=== PATIENT | male | born 1940 | race Caucasian/White ===

== ENCOUNTER 2020-10-12 15:55 | Inpatient (IN) | payer MEDICARE ==
[~2020-10-12] VITALS: Ht 167.6 cm; Wt 110.9 kg
[2020-10-12 17:23] LABS: BASOPHILS % (AUTO) 1 % (0-1); EOSINOPHILS % (AUTO) 2 % (1-7); LYMPHOCYTES % (AUTO) 12 % (22-44); MEAN CORPUSCULAR HGB CONC 33.2 g/dL (33.2-36.2); MONOCYTES % (AUTO) 5 % (2-9); NEUTROPHILS % (AUTO) 80 % (42-75); PLATELET COUNT 205 x10^3/uL (130-400); RED BLOOD COUNT 4.37 x10^6/uL (4.38-5.82)
[2020-10-12 17:29] LABS: ALBUMIN 3.3 g/dL (3.4-5.0); CALCIUM 9.7 mg/dL (8.5-10.1); CHLORIDE 105 mmol/L (98-107)
[2020-10-12 17:30] LABS: CREATININE 3.04 mg/dL (0.7-1.3)
[2020-10-12 17:42] LABS: ANION GAP 4 mmol/L (5-15)
[2020-10-12] MEDS ORDERED: SODIUM CHLORIDE FLUSH 10ML SYR IVF PRN (18:30)
--- NOTE | 2020-10-12 18:40 | NUR ---
BEDSIDE REPORT TO NELLIE HUSSEIN.
--- NOTE | 2020-10-12 18:59 | NUR ---
ATTEMPTED TO GIVE REPORT TO [facility]ALL[facility]. LARRY BALLARD SAID THAT THEY WERE IN THE MIDDLE OF SHIFT CHANGE AND TO CALL BACK IN 10 MIN
--- NOTE | 2020-10-12 18:59 | NUR ---
ASSUMED CARE FROM BETTY BALLARD
--- NOTE | 2020-10-12 18:59 | NUR ---
PATIENT PROVIDED WITH URINAL REQUESTED.
[2020-10-12] MEDS ORDERED: OXYcodone IR 5MG TABLET PO PRN (19:00)
[2020-10-12] MEDS ORDERED: ACETAMINOPHEN 325 MG TABLET PO PRN (19:00)
[2020-10-12] MEDS: morphine SULFATE 10 MG/ML, 1ML IVPush PRN (19:54)
[2020-10-12] MEDS: LACTATED RINGERS 1,000 ML IV SCH (19:59)
[2020-10-12 20:30] VITALS: BP 114/73
[2020-10-13 01:47] VITALS: BP 110/67
[2020-10-13] MEDS: morphine SULFATE 10 MG/ML, 1ML IVPush PRN ×3 (02:08→02:45)
[2020-10-13] MEDS: LACTATED RINGERS 1,000 ML IV SCH ×2 (06:15→19:57)
[2020-10-13 06:49] LABS: BASOPHILS % (AUTO) 1 % (0-1); EOSINOPHILS % (AUTO) 1 % (1-7); LYMPHOCYTES % (AUTO) 20 % (22-44); MEAN CORPUSCULAR HEMOGLOBIN 29.9 pg (27.5-34.5); MEAN CORPUSCULAR HGB CONC 32.8 g/dL (33.2-36.2); MEAN PLATELET VOLUME 9.2 fL (7.4-10.4); MONOCYTES % (AUTO) 7 % (2-9); NEUTROPHILS % (AUTO) 71 % (42-75); PLATELET COUNT 194 x10^3/uL (130-400); RED BLOOD COUNT 3.98 x10^6/uL (4.38-5.82)
[2020-10-13 06:59] LABS: ANION GAP 5 mmol/L (5-15); CALCIUM 9.3 mg/dL (8.5-10.1); CHLORIDE 108 mmol/L (98-107); CREATININE 2.92 mg/dL (0.7-1.3)
[2020-10-13 07:11] VITALS: BP 143/83
[2020-10-13] MEDS: SENNA/DOCUSATE TABLET PO SCH (09:00)
[2020-10-13 09:04] LABS: INTERNATIONAL NORMALIZED RATIO 1.05 (0.93-1.1); PROTHROMBIN TIME 11.2 Seconds (9.6-11.5)
[2020-10-13] MEDS ORDERED: LEVO50CA4 PO (10:06)
[2020-10-13] MEDS ORDERED: CHOL10003 PO (10:06)
[2020-10-13] MEDS ORDERED: GABA300S PO (10:06)
[2020-10-13] MEDS ORDERED: ATOR20TA86 PO (10:06)
[2020-10-13] MEDS ORDERED: FAMO-79 PO (10:06)
[2020-10-13] MEDS ORDERED: AMLO-210 PO (10:06)
[2020-10-13] MEDS ORDERED: ALLO100T30 PO (10:06)
[2020-10-13] MEDS ORDERED: LISI10TA19 PO (10:06)
[2020-10-13] MEDS ORDERED: ASPI-963 PO (10:06)
[2020-10-13] MEDS ORDERED: [UNRECOGNIZED DRUG - CODE] PO (10:06)
[2020-10-13 12:27] VITALS: BP 136/82
[2020-10-13] MEDS ORDERED: CHLORHEXIDINE 15 ML UDC ONE (13:09)
[2020-10-13] MEDS ORDERED: CHLORHEXIDINE 15 ML UDC PO ONE (13:30)
[2020-10-13] MEDS ORDERED: FENTANYL PF 250 MCG/5ML ONE (13:31)
[2020-10-13] MEDS ORDERED: PHENYLEPHRINE 10 MG/ML ONE (13:45)
[2020-10-13] MEDS ORDERED: FENTANYL PF 100 MCG/2ML IV PRN (14:30)
[2020-10-13] MEDS ORDERED: MEPERIDINE/PF 25MG/0.5ML IVPush PRN (14:30)
[2020-10-13] MEDS ORDERED: MIDAZOLAM 1 MG/ML, 2ML IV PRN (14:30)
[2020-10-13] MEDS ORDERED: LABETALOL 5MG/ML, 20ML IV PRN (14:30)
[2020-10-13] MEDS ORDERED: ACETAMINOPHEN 325 MG TABLET PO PRN (14:30)
[2020-10-13] MEDS ORDERED: OXYcodone 5 MG/5 ML ORAL.SOL UDC PO PRN (14:30)
[2020-10-13] MEDS ORDERED: ALBUTEROL SULFATE 2.5 MG/3 ML NPPB PRN (14:30)
[2020-10-13] MEDS ORDERED: PROMETHAZINE 25 MG/ML, 1ML IVPush PRN (14:30)
[2020-10-13] MEDS ORDERED: HYDROmorphone 1 MG/ML, 1ML INJ IVPush PRN (14:30)
[2020-10-13] MEDS ORDERED: SUCCINYLCHOLINE 20 MG/ML, 10ML ONE (15:24)
[2020-10-13] MEDS ORDERED: GLYCOPYRROLATE 0.2MG/1ML, 5ML ONE (15:24)
[2020-10-13] MEDS ORDERED: DEXAMETHASONE 4 MG/ML, 1ML ONE (15:24)
[2020-10-13] MEDS ORDERED: PROPOFOL 10 MG/ML, 20ML ONE (15:24)
[2020-10-13] MEDS ORDERED: CEFAZOLIN 1,000 MG ONE (15:24)
[2020-10-13] MEDS ORDERED: NEOSTIGMINE 1 MG/ML, 10ML ONE (15:24)
[2020-10-13] MEDS ORDERED: ROCURONIUM 10MG/ML,5ML ONE (15:24)
[2020-10-13] MEDS ORDERED: LIDOCAINE-MPF 2% ,5ML ONE (15:24)
[2020-10-13] MEDS ORDERED: ONDANSETRON 2MG/ML, 2ML ONE (15:24)
[2020-10-13] MEDS ORDERED: ACETAMINOPHEN 650 MG/20.3 ML UDC ONE (16:08)
[2020-10-13 19:51] VITALS: BP 110/76
[2020-10-13] MEDS: CEFAZOLIN 2,000 MG in SODIUM CHLORIDE 0.9% 50 ML IV SCH (23:04)
[2020-10-14 00:04] VITALS: BP 130/78
[2020-10-14 04:12] VITALS: BP 128/74
[2020-10-14 05:00] LABS: BASOPHILS % (AUTO) 0 % (0-1); EOSINOPHILS % (AUTO) 0 % (1-7); LYMPHOCYTES % (AUTO) 13 % (22-44); MEAN CORPUSCULAR HEMOGLOBIN 29.8 pg (27.5-34.5); MEAN CORPUSCULAR HGB CONC 32.6 g/dL (33.2-36.2); MONOCYTES % (AUTO) 7 % (2-9); NEUTROPHILS % (AUTO) 80 % (42-75); PLATELET COUNT 183 x10^3/uL (130-400); RED BLOOD COUNT 3.56 x10^6/uL (4.38-5.82); RED CELL DISTRIBUTION WIDTH 14.9 % (9.4-14.8)
[2020-10-14] MEDS: LACTATED RINGERS 1,000 ML IV SCH ×2 (05:12→14:31)
[2020-10-14 05:13] LABS: ALBUMIN 2.8 g/dL (3.4-5.0); ANION GAP 6 mmol/L (5-15); CALCIUM 9.2 mg/dL (8.5-10.1); CHLORIDE 107 mmol/L (98-107)
[2020-10-14 05:16] LABS: CREATININE 2.89 mg/dL (0.7-1.3)
[2020-10-14] MEDS: morphine SULFATE 10 MG/ML, 1ML IVPush PRN ×2 (06:36→09:31)
[2020-10-14] MEDS: CEFAZOLIN 2,000 MG in SODIUM CHLORIDE 0.9% 50 ML IV SCH (06:37)
[2020-10-14 07:32] VITALS: BP 133/79
[2020-10-14] MEDS: AMLODIPINE 5 MG TABLET PO SCH (08:09)
[2020-10-14] MEDS: LISINOPRIL 10 MG TABLET PO SCH (08:09)
[2020-10-14] MEDS: CHOLECALCIFEROL 1,000 UNIT TABLET PO SCH (08:09)
[2020-10-14] MEDS: ATORVASTATIN 40 MG TABLET PO SCH (08:09)
[2020-10-14] MEDS: GABAPENTIN 300 MG CAPSULE PO SCH (08:09)
[2020-10-14] MEDS: SENNA/DOCUSATE TABLET PO SCH (08:09)
[2020-10-14] MEDS: LEVOTHYROXINE 50 MCG TABLET PO SCH (08:09)
[2020-10-14 12:26] VITALS: BP 101/68
[2020-10-14] MEDS: HEPARIN 5,000 UNITS/ML, 1ML SQ SCH ×2 (14:23→22:09)
[2020-10-14 20:24] VITALS: BP 112/68
[2020-10-15] MEDS: LACTATED RINGERS 1,000 ML IV SCH ×2 (01:34→16:25)
[2020-10-15 02:31] VITALS: BP 121/70
[2020-10-15] MEDS: morphine SULFATE 10 MG/ML, 1ML IVPush PRN (03:07)
[2020-10-15 04:35] LABS: BASOPHILS % (AUTO) 1 % (0-1); EOSINOPHILS % (AUTO) 2 % (1-7); LYMPHOCYTES % (AUTO) 25 % (22-44); MEAN CORPUSCULAR HEMOGLOBIN 30.5 pg (27.5-34.5); MEAN CORPUSCULAR HGB CONC 33.6 g/dL (33.2-36.2); MEAN PLATELET VOLUME 8.6 fL (7.4-10.4); MONOCYTES % (AUTO) 8 % (2-9); NEUTROPHILS % (AUTO) 65 % (42-75); PLATELET COUNT 168 x10^3/uL (130-400); RED BLOOD COUNT 2.96 x10^6/uL (4.38-5.82)
[2020-10-15 04:44] LABS: ALBUMIN 2.5 g/dL (3.4-5.0); ANION GAP 5 mmol/L (5-15); CALCIUM 9.2 mg/dL (8.5-10.1); CHLORIDE 107 mmol/L (98-107); CREATININE 2.56 mg/dL (0.7-1.3)
[2020-10-15] MEDS: HEPARIN 5,000 UNITS/ML, 1ML SQ SCH ×3 (05:51→22:29)
[2020-10-15 07:06] VITALS: BP 126/77
[2020-10-15] MEDS: GABAPENTIN 300 MG CAPSULE PO SCH (08:11)
[2020-10-15] MEDS: LEVOTHYROXINE 50 MCG TABLET PO SCH (08:12)
[2020-10-15] MEDS: CHOLECALCIFEROL 1,000 UNIT TABLET PO SCH (08:12)
[2020-10-15] MEDS: AMLODIPINE 5 MG TABLET PO SCH (08:12)
[2020-10-15] MEDS: LISINOPRIL 10 MG TABLET PO SCH (08:12)
[2020-10-15] MEDS: SENNA/DOCUSATE TABLET PO SCH (08:12)
[2020-10-15] MEDS: ATORVASTATIN 40 MG TABLET PO SCH (08:12)
[2020-10-15 14:06] VITALS: BP 129/77
[2020-10-15 20:19] VITALS: BP 106/65
[2020-10-16 00:48] VITALS: BP 146/78
[2020-10-16] MEDS: LACTATED RINGERS 1,000 ML IV SCH ×2 (03:36→16:14)
[2020-10-16 05:16] LABS: BASOPHILS % (AUTO) 1 % (0-1); EOSINOPHILS % (AUTO) 4 % (1-7); LYMPHOCYTES % (AUTO) 21 % (22-44); MEAN CORPUSCULAR HEMOGLOBIN 30.3 pg (27.5-34.5); MEAN CORPUSCULAR HGB CONC 33.4 g/dL (33.2-36.2); MONOCYTES % (AUTO) 8 % (2-9); NEUTROPHILS % (AUTO) 67 % (42-75); PLATELET COUNT 174 x10^3/uL (130-400); RED BLOOD COUNT 2.79 x10^6/uL (4.38-5.82); RED CELL DISTRIBUTION WIDTH 14.5 % (9.4-14.8)
[2020-10-16 05:26] LABS: ALBUMIN 2.3 g/dL (3.4-5.0); CALCIUM 8.9 mg/dL (8.5-10.1); CHLORIDE 108 mmol/L (98-107)
[2020-10-16 05:27] LABS: CREATININE 2.15 mg/dL (0.7-1.3)
[2020-10-16 05:32] LABS: ANION GAP 4 mmol/L (5-15)
[2020-10-16] MEDS: HEPARIN 5,000 UNITS/ML, 1ML SQ SCH (05:57)
[2020-10-16 06:58] VITALS: BP 149/92
[2020-10-16] MEDS: ATORVASTATIN 40 MG TABLET PO SCH (09:00)
[2020-10-16] MEDS: GABAPENTIN 300 MG CAPSULE PO SCH (09:00)
[2020-10-16] MEDS: AMLODIPINE 5 MG TABLET PO SCH (09:01)
[2020-10-16] MEDS: LEVOTHYROXINE 50 MCG TABLET PO SCH (09:01)
[2020-10-16] MEDS: LISINOPRIL 10 MG TABLET PO SCH (09:01)
[2020-10-16] MEDS: SENNA/DOCUSATE TABLET PO SCH (09:01)
[2020-10-16] MEDS: CHOLECALCIFEROL 1,000 UNIT TABLET PO SCH (09:01)
[2020-10-16 13:05] VITALS: BP 132/76
[2020-10-16 13:55] VITALS: BP 126/72
[2020-10-16 17:31] LABS: CHOL/HDL RATIO 2.9
[2020-10-16 17:32] LABS: LDL/HDL RATIO 0.5 (0.5-3.0)
[2020-10-16 20:28] VITALS: BP 146/78
[2020-10-17 02:45] VITALS: BP 159/77
[2020-10-17] MEDS: LACTATED RINGERS 1,000 ML IV SCH ×2 (04:35→15:49)
[2020-10-17 07:25] VITALS: BP 137/84
[2020-10-17] MEDS: ATORVASTATIN 40 MG TABLET PO SCH (09:01)
[2020-10-17] MEDS: CHOLECALCIFEROL 1,000 UNIT TABLET PO SCH (09:01)
[2020-10-17] MEDS: LEVOTHYROXINE 50 MCG TABLET PO SCH (09:01)
[2020-10-17] MEDS: AMLODIPINE 5 MG TABLET PO SCH (09:01)
[2020-10-17] MEDS: SENNA/DOCUSATE TABLET PO SCH (09:02)
[2020-10-17] MEDS: LISINOPRIL 10 MG TABLET PO SCH (09:02)
[2020-10-17] MEDS: GABAPENTIN 300 MG CAPSULE PO SCH (10:39)
[2020-10-17 12:21] VITALS: BP 145/77
[2020-10-17 12:36] LABS: BASOPHILS % (AUTO) 1 % (0-1); EOSINOPHILS % (AUTO) 4 % (1-7); LYMPHOCYTES % (AUTO) 17 % (22-44); MEAN CORPUSCULAR HEMOGLOBIN 30.9 pg (27.5-34.5); MEAN CORPUSCULAR HGB CONC 34.1 g/dL (33.2-36.2); MEAN PLATELET VOLUME 9.2 fL (7.4-10.4); MONOCYTES % (AUTO) 7 % (2-9); NEUTROPHILS % (AUTO) 70 % (42-75); PLATELET COUNT 218 x10^3/uL (130-400); RED BLOOD COUNT 3.15 x10^6/uL (4.38-5.82); RED CELL DISTRIBUTION WIDTH 14.4 % (9.4-14.8)
[2020-10-17 19:41] VITALS: BP 134/74
[2020-10-18 01:19] VITALS: BP 123/74
[2020-10-18] MEDS: LACTATED RINGERS 1,000 ML IV SCH ×3 (01:40→21:53)
[2020-10-18 06:59] VITALS: BP 112/67
[2020-10-18 07:47] LABS: ALBUMIN 2.4 g/dL (3.4-5.0); CALCIUM 9.6 mg/dL (8.5-10.1); CHLORIDE 108 mmol/L (98-107); CREATININE 1.72 mg/dL (0.7-1.3)
[2020-10-18 08:25] LABS: BASOPHILS % (AUTO) 1 % (0-1); EOSINOPHILS % (AUTO) 6 % (1-7); LYMPHOCYTES % (AUTO) 20 % (22-44); MEAN CORPUSCULAR HEMOGLOBIN 30.1 pg (27.5-34.5); MEAN CORPUSCULAR HGB CONC 33.7 g/dL (33.2-36.2); MEAN PLATELET VOLUME 7.9 fL (7.4-10.4); MONOCYTES % (AUTO) 8 % (2-9); NEUTROPHILS % (AUTO) 64 % (42-75); PLATELET COUNT 226 x10^3/uL (130-400); RED BLOOD COUNT 3.21 x10^6/uL (4.38-5.82); RED CELL DISTRIBUTION WIDTH 14.3 % (9.4-14.8)
[2020-10-18 09:03] LABS: ANION GAP 9 mmol/L (5-15)
[2020-10-18] MEDS: GABAPENTIN 300 MG CAPSULE PO SCH (09:26)
[2020-10-18] MEDS: LEVOTHYROXINE 50 MCG TABLET PO SCH (09:27)
[2020-10-18] MEDS: AMLODIPINE 5 MG TABLET PO SCH (09:27)
[2020-10-18] MEDS: LISINOPRIL 10 MG TABLET PO SCH (09:27)
[2020-10-18] MEDS: SENNA/DOCUSATE TABLET PO SCH (09:27)
[2020-10-18] MEDS: CHOLECALCIFEROL 1,000 UNIT TABLET PO SCH (09:27)
[2020-10-18] MEDS: ATORVASTATIN 40 MG TABLET PO SCH (09:27)
[2020-10-18 13:30] VITALS: BP 133/78
[2020-10-18] MEDS: POLYETHYLENE GLYCOL 17 GM PACKET PO PRN (15:31)
[2020-10-18] MEDS: HEPARIN 5,000 UNITS/ML, 1ML SQ SCH ×2 (15:31→22:31)
[2020-10-18 20:05] VITALS: BP 124/74
[2020-10-19 00:15] VITALS: BP 125/74
[2020-10-19] MEDS: HEPARIN 5,000 UNITS/ML, 1ML SQ SCH ×3 (06:19→21:41)
[2020-10-19] MEDS: LACTATED RINGERS 1,000 ML IV SCH ×3 (07:33→21:40)
[2020-10-19 09:03] VITALS: BP 131/80
[2020-10-19] MEDS: CHOLECALCIFEROL 1,000 UNIT TABLET PO SCH (09:11)
[2020-10-19] MEDS: SENNA/DOCUSATE TABLET PO SCH (09:11)
[2020-10-19] MEDS: LEVOTHYROXINE 50 MCG TABLET PO SCH (09:11)
[2020-10-19] MEDS: GABAPENTIN 300 MG CAPSULE PO SCH (09:11)
[2020-10-19] MEDS: LISINOPRIL 10 MG TABLET PO SCH (09:11)
[2020-10-19] MEDS: AMLODIPINE 5 MG TABLET PO SCH (09:11)
[2020-10-19] MEDS: ATORVASTATIN 40 MG TABLET PO SCH (09:11)
[2020-10-19] MEDS: POLYETHYLENE GLYCOL 17 GM PACKET PO PRN (12:39)
[2020-10-19] MEDS ORDERED: MAGNESIUM HYDROXIDE 8%, 30ML UDC PO PRN (13:00)
[2020-10-19 14:20] VITALS: BP 122/76
[2020-10-19 19:42] VITALS: BP 128/74
[2020-10-19] MEDS ORDERED: MELATONIN 5 MG TABLET PO SCH (21:00)
[2020-10-20 05:18] LABS: BASOPHILS % (AUTO) 1 % (0-1); EOSINOPHILS % (AUTO) 6 % (1-7); LYMPHOCYTES % (AUTO) 19 % (22-44); MEAN CORPUSCULAR HEMOGLOBIN 31.1 pg (27.5-34.5); MEAN PLATELET VOLUME 8.7 fL (7.4-10.4); MONOCYTES % (AUTO) 8 % (2-9); NEUTROPHILS % (AUTO) 66 % (42-75); PLATELET COUNT 273 x10^3/uL (130-400); RED BLOOD COUNT 3.25 x10^6/uL (4.38-5.82); RED CELL DISTRIBUTION WIDTH 14.8 % (9.4-14.8)
[2020-10-20 05:29] LABS: CHLORIDE 104 mmol/L (98-107)
[2020-10-20 05:39] LABS: ALANINE AMINOTRANSFERASE 26 U/L (12-78); ALBUMIN 2.7 g/dL (3.4-5.0); ALKALINE PHOSPHATASE 97 U/L (45-117); ANION GAP 5 mmol/L (5-15); CALCIUM 9.3 mg/dL (8.5-10.1); CREATININE 1.87 mg/dL (0.7-1.3); TOTAL PROTEIN 6.5 g/dL (6.4-8.2)
[2020-10-20] MEDS: HEPARIN 5,000 UNITS/ML, 1ML SQ SCH ×2 (06:35→14:30)
[2020-10-20 07:59] VITALS: BP 172/90
[2020-10-20] MEDS: SENNA/DOCUSATE TABLET PO SCH (08:07)
[2020-10-20] MEDS: CHOLECALCIFEROL 1,000 UNIT TABLET PO SCH (08:07)
[2020-10-20] MEDS: GABAPENTIN 300 MG CAPSULE PO SCH (08:07)
[2020-10-20] MEDS: LEVOTHYROXINE 50 MCG TABLET PO SCH (08:07)
[2020-10-20] MEDS: AMLODIPINE 5 MG TABLET PO SCH (08:07)
[2020-10-20] MEDS: LISINOPRIL 10 MG TABLET PO SCH (08:08)
[2020-10-20] MEDS: ATORVASTATIN 40 MG TABLET PO SCH (08:08)
[2020-10-20] MEDS: LACTATED RINGERS 1,000 ML IV SCH (13:30)
[2020-10-20 13:38] VITALS: BP 113/68
[2020-10-20] MEDS ORDERED: SENN-211 PO (15:25)
[2020-10-20] MEDS ORDERED: ACET325T26 PO (15:25)
[2020-10-20] MEDS ORDERED: MELA5TAB14 PO (15:25)
[2020-10-20] MEDS ORDERED: POLY17PO5 PO (15:25)
[2020-10-20] MEDS ORDERED: HEPA50002 SQ (15:25)
[2020-10-21] MEDS ORDERED: ASPIRIN 81 MG TABLET EC PO SCH (09:00)
[2020-10-21] MEDS ORDERED: ALLOPURINOL 100 MG TABLET PO SCH (09:00)
== END 2020-10-20 16:10 | DRG 480 ==
LOC: OR 18:15 → EDIP 18:23 → OR 18:28 → SUATTDRO 18:31 → 4NE 19:44 → 4EST 10-16 13:30
PROVIDERS: ADMIT Student in an Organized Health Care Education/Training Program; ATTEND Internal Medicine
PROC: 0QS706Z Reposition Left Upper Femur with Intramedullary Internal Fixation Device, Open Approach (ICD-10-PCS; principal; 2020-10-13 13:30)
PROC: 0YPB0YZ Removal of Other Device from Left Lower Extremity, Open Approach (ICD-10-PCS; 2020-10-13 13:30)
DX: S72.145A Nondisplaced intertrochanteric fracture of left femur, initial encounter for closed fracture (principal); G93.41 Metabolic encephalopathy; N17.0 Acute kidney failure with tubular necrosis; N18.4 Chronic kidney disease, stage 4 (severe); G45.9 Transient cerebral ischemic attack, unspecified; I12.0 Hypertensive chronic kidney disease with stage 5 chronic kidney disease or end stage renal disease; D63.8 Anemia in other chronic diseases classified elsewhere; E03.9 Hypothyroidism, unspecified; E78.5 Hyperlipidemia, unspecified; E88.09 Other disorders of plasma-protein metabolism, not elsewhere classified; G93.89 Other specified disorders of brain; M10.9 Gout, unspecified; W01.0XXA Fall on same level from slipping, tripping and stumbling without subsequent striking against object, initial encounter; Z66 Do not resuscitate; Z96.652 Presence of left artificial knee joint; Y93.89 Activity, other specified; Y92.89 Other specified places as the place of occurrence of the external cause; Z88.0 Allergy status to penicillin; Z91.018 Allergy to other foods; Z20.822 Contact with and (suspected) exposure to COVID-19
CPT/HCPCS: 36415; 70450; 70551; 71045; 76000; 80048; 80053; 80061; 80069; 82040; 82962; 83036; 84443; 85014; 85018; 85025; 85610; 87635; 93005; 93306; 93880; 99285; C1713; G0378; J0690; J1100; J1644; J2405; J2704; J2710; J3010; J0330; J2270; J2370; J7120